=== PATIENT | female | born 1960 | race Caucasian/White ===

== ENCOUNTER → 2016-11-29 | Outpatient (CLI) | payer OTHER ==
[~2016-11-29] MED LIST: CELEBREX 200 M200 M1 PO; CLONIDINE0.1 PO; DIFLUCAN200 MG PO; FENOFIBRATE160 MG PO; IMURAN 50MG TAB50 M1 PO; METFORMIN HCL500 MG PO; MIRAPEX0.25 MG PO; NORCO 5-325 TA1 EACH PO; NORVASC5 MG PO; NUVIGIL250 MG PO; PAXIL10 MG PO; PREMARIN0.625 MG PO; PREVACID30 MG PO; PROAIR HFA8.5 GM INH; RECLAST 55 MG/1002 IVPB; REGLAN 10 MG TA10 MG PO; SYMBICORT160 MCG/4. INH; TOVIAZ8 MG PO; TRAMADOL 50 MG50 MG PO
== END ==
LOC: RAD 14:19
DX: R92.8 Other abnormal and inconclusive findings on diagnostic imaging of breast (principal)

== ENCOUNTER → 2017-09-27 | Outpatient (CLI) | payer OTHER | LOC: RAD 04:17 | DX: Z12.31 Encounter for screening mammogram for malignant neoplasm of breast (principal) ==

== ENCOUNTER → 2018-11-07 | Outpatient (CLI) | payer OTHER | LOC: RAD 02:02 | DX: Z12.31 Encounter for screening mammogram for malignant neoplasm of breast (principal) ==

== ENCOUNTER 2018-11-14 05:33 | Day surgery (SDC) | payer OTHER ==
[~2018-11-14] VITALS: Ht 167.6 cm; Wt 80.7 kg
[~2018-11-14 05:33] MED LIST changes: +CYMBALTA60 MG PO; +RESTASIS1 EACH OPHTHALMIC; +VITAMIN D34000 UNIT PO; +ZYRTEC10 MG PO
[2018-11-14 07:51] LABS: HEMOGLOBIN 12.2 gm/dL (12.0-15.0); MCH 29.5 pg (26.0-34.0); MCV 86.7 fL (80.0-100.0); RBC 4.15 mil/uL (4.20-5.00); RDW 14.2 % (10.5-14.5); WBC 5.7 thou/uL (4.0-11.0)
[2018-11-14 07:55] LABS: CALCIUM 9.6 mg/dL (8.5-10.1); CREATININE 0.7 mg/dL (0.6-1.0); POTASSIUM 3.9 mmol/L (3.5-5.1)
[2018-11-14 08:01] LABS: ALBUMIN 3.7 g/dL (3.4-5.0); TOTAL BILIRUBIN 0.3 mg/dL (<0.1-1.0); TOTAL PROTEIN 7.1 g/dL (6.4-8.2)
--- NOTE | 2018-11-14 08:40 | EKG ---
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 : 1960 Requested By: Rizwan Kearns Order Number: [id number] MD: Josr Mckeon Measurements Intervals Redig Rate: 91 P: 34 AR: 142 QRS: 37 QRSD: 91 T: 17 QT: 380 QTc: 468 Interpretive Statements Sinus rhythm Abnormal R-wave progression, early transition Compared to ECG 09/30/2015 08:13:49 Sinus tachycardia no longer present ST (T wave) deviation no longer present Electronically Signed On 11-14-2018 8:40:13 CDT by Josr Mckeon [email or web address] ��������������������������������������������� <ELECTRONICALLY SIGNED> ���������������������������������������� By: Josr Mckeon MD, [facility] ��������������������������������������������� 11/14/18 0840 0738 0738 Josr Mckeon MD, [facility] /EPI
[2018-11-14 10:47] VITALS: BP 130/76
[2018-11-14 11:25] VITALS: BP 130/76
--- NOTE | 2018-12-03 13:51 | O ---
[facility] [address] OPERATIVE REPORT Name: NEFTALY ESTRADA Room #: [facility] M.R.#: [id number] Admission: 11/14/18 ������������������ Attend Phys: Rizwan Phillips Discharge: 11/14/18 ������������������ Date of : 56 Report #: [id number] THIS REPORT FOR: //name// CC: Melinda Kearns Amrit Box PREOPERATIVE DIAGNOSES: Right shoulder pain, status post fall; rotator cuff tear, impingement syndrome, biceps tendinopathy, glenohumeral joint chondromalacia. POSTOPERATIVE DIAGNOSES: Right shoulder massive rotator cuff tear, complex labral tear, glenohumeral joint chondromalacia; intra-articular synovitis; subacromial bursitis with impingement syndrome. PROCEDURE PERFORMED: Right shoulder arthroscopy, massive rotator cuff repair, subacromial decompression, extensive debridement. SURGEON: Rizwan Kearns MD WEIGHER ALLOY: Portia Garcia PA-C. ANESTHESIA: General with preoperative ultrasound-guided interscalene block. FLUIDS: Approximately 1000 mL crystalloid. ESTIMATED BLOOD LOSS: Negligible. DESCRIPTION OF PROCEDURE: After proper identification of the patient in preoperative holding area, the operative site was signed by myself. Prophylactic antibiotics given. The patient elected to receive an ultrasound-guided interscalene block after reviewing the risks, benefits, alternatives and potential complications with Anesthesia. After a satisfactory block, the patient was brought back to the operative suite after induction of satisfactory general anesthesia. The patient's right shoulder was examined. It was stable throughout a full arc of motion comparable to the preoperative assessment. The patient was carefully positioned in the left lateral decubitus position. Foster bag and extra roll were utilized to support the torso. Neck was carefully positioned. The right shoulder was sterilely prepped and draped in usual manner and placed in 10 pounds balanced arthroscopic suspension. Posterior portal was established and insufflated with an arthroscopic pump set at 40 mmHg. Anterior superior portal was created using a spinal needle for localization. Examination of the glenohumeral joint revealed a complex labral tearing of the anterior, superior and posterior superior quadrants. This extended down into the anterior inferior quadrant. Intra-articular synovitis was noted and was carefully debrided. There was an upper border tear of the subscapularis for approximately 1 cm. Long head of biceps tendon was stable, [address] [address] OPERATIVE REPORT Name: NEFTALY ESTRADA DEANNE Room #: [facility] M.Jorgito.#: [id number] Admission: 11/14/18 ������������������ Attend Phys: Rizwan Phillips Discharge: 11/14/18 ������������������ Date of : 56 Report #: [id number] within its groove. No evidence of groove pathology was noted. It otherwise had a secure attachment on the superior labrum and glenoid. There was a chondral fraying and fibrillation noted on the superior humeral head. Inferiorly, there was some mild thinning. Chondral surface of the glenoid demonstrated some mild degenerative changes as well. A separate anterior inferior portal was then created for repair of the subscapularis. A soft tissue was cleared around this area. Frayed portion of the tendon was debrided. Lesser tuberosity was prepared with combination of hand and motorized instrumentation. FiberTape was passed in a simple manner, secured with a 4.75 mm SwiveLock anchor which nicely reduced the tear. There was evidence of a rotator cuff tear that involved the entire supraspinatus and extended back into the infraspinatus with retraction to the level of the glenoid. The arthroscope was introduced in the subacromial space. Additional lateral and posterolateral portals were created as well as the portal off the lateral border of the acromion. Frayed portion of the cuff was debrided off the greater tuberosity, and the patient had an L-shaped tear that could be brought both anterior and lateral. Anterior interval slide was performed to help with mobilization of these tissues. Fraying was noted on the undersurface of the coracoacromial arch. The ligament was released but not resected off the anterolateral acromion, and prominence to the acromion was removed using a motorized bur. Approximately 3-4 mm of bone was resected. Using the [employer] SpeedBridge system, two double loaded 4.75 mm SwiveLock anchors were inserted off the medial articular margin. Once the tear pattern was recognized, the sutures were passed slightly laterally. The #2 FiberWires were passed in a horizontal mattress fashion both anterior and posterior to the FiberTape site were passed. These were tied with locking sliding knots, backed up with alternating half hitches, and the FiberTapes were then cut crossed and 2 additional lateral anchors were utilized where the sutures and FiberTape were then individually tensioned. This resulted in an anatomic buddhism of the footprint. It was stable to probing, nicely reduced. There was good compression across the greater tuberosity. Construct was stable to probing. We will limit external rotation to neutral for the first 4 weeks due to the subscapularis repair. Sling will be utilized for 8 weeks in total. Qualified freezer assistant utilized throughout the entire procedure to aid in patient limb positioning, visualization with the arthroscope instrument and suture passage as well as closure and sling application. ��������������������������������������������� <ELECTRONICALLY SIGNED> ���������������������������������������� By: Rizwan Kearns MD ��������������������������������������������� 12/03/18 1351 1116 1416 Rizwan Kearns MD /pedro
== END 2018-11-14 12:35 | disposition home or self-care (01) ==
LOC: OR 05:33 → TBA 05:33 → OR 09:47
PROVIDERS: Orthopaedic Surgery Sports Medicine
DX: M75.101 Unspecified rotator cuff tear or rupture of right shoulder, not specified as traumatic (principal); S43.491A Other sprain of right shoulder joint, initial encounter; M75.41 Impingement syndrome of right shoulder; M75.21 Bicipital tendinitis, right shoulder; M94.211 Chondromalacia, right shoulder; M65.811 Other synovitis and tenosynovitis, right shoulder; I10 Essential (primary) hypertension; D64.9 Anemia, unspecified; K21.9 Gastro-esophageal reflux disease without esophagitis; E11.9 Type 2 diabetes mellitus without complications; J45.909 Unspecified asthma, uncomplicated; Z87.19 Personal history of other diseases of the digestive system; Z90.710 Acquired absence of both cervix and uterus; Z90.49 Acquired absence of other specified parts of digestive tract; Z98.890 Other specified postprocedural states; Z96.642 Presence of left artificial hip joint; Z98.41 Cataract extraction status, right eye; Z98.42 Cataract extraction status, left eye; Z85.828 Personal history of other malignant neoplasm of skin; Z88.8 Allergy status to other drugs, medicaments and biological substances; Z79.899 Other long term (current) drug therapy; X58.XXXA Exposure to other specified factors, initial encounter; Y93.89 Activity, other specified; Y92.89 Other specified places as the place of occurrence of the external cause; Y99.8 Other external cause status
CPT/HCPCS: 50010; 50101; 50172; 50386; 50417; 50950; 51038; 51320; 51445; 51847; 52001; 52313; 53610; 54170; 55430; 56527; 57103; 62110; 62900; 64039; 70005

== ENCOUNTER → 2021-01-18 | Outpatient (CLI) | payer OTHER | LOC: BC 10:04 | PROVIDERS: ATTEND Internal Medicine | DX: Z12.31 Encounter for screening mammogram for malignant neoplasm of breast (principal); N64.89 Other specified disorders of breast ==